=== PATIENT | male | born 1950 | race African-American/Black ===

== ENCOUNTER 2021-11-04 16:38 | Emergency (ER) | payer MEDICAID, MEDICARE ==
[~2021-11-04] VITALS: Ht 182.9 cm; Wt 90.7 kg
[2021-11-04 18:11] VITALS: BP 181/106
== END 2021-11-04 18:41 | disposition left against medical advice (07) ==
LOC: ER 16:38 → CANBEDREQ 19:32
DX: R53.1 Weakness (principal); E11.9 Type 2 diabetes mellitus without complications
CPT/HCPCS: 82962; 93005; 99283

== ENCOUNTER 2024-04-13 02:23 | Inpatient (IN) | payer MEDICARE, MEDICAID ==
[~2024-04-13] VITALS: Ht 167.6 cm; Wt 91.6 kg
[~2024-04-13 02:23] MED LIST: AMLO-139; ATOR20TA65 PO; EMPA25TA PO; KEPP250 PO; LATA2.5D14 EACHEYE; LISI20TA31 PO; METF-416 PO
[2024-04-13 03:17] LABS: CHLORIDE 124 mEq/L (98-107)
[2024-04-13 03:18] LABS: CALCIUM 8.6 mg/dL (8.7-10.4); CARBON DIOXIDE 23 mEq/L (21-32)
[2024-04-13 03:21] LABS: BASOPHILS % 0.3 % (0.0-2.0); EOSINOPHILS % 0.2 % (0.0-5.0); HEMATOCRIT. 35.9 % (42.0-52.0); HEMOGLOBIN. 11.5 g/dL (14.0-18.0); LYMPHOCYTES % 10.6 % (20.0-50.0); MEAN CORPUSCULAR HEMOGLOBIN 28.5 pg (28.0-32.0); MEAN CORPUSCULAR HGB CONC 32.2 g/dL (31.0-37.0); MEAN CORPUSCULAR VOLUME 88.5 fL (80.0-94.0); MEAN PLATELET VOLUME 7.8 fl (7.4-10.4); MONOCYTES % 8.3 % (2.0-8.0); NEUTROPHILS % 80.6 % (40.0-76.0); PLATELET 445 x1000/uL (130-400); RED BLOOD CELL COUNT 4.05 mill/uL (4.7-6.1); WHITE BLOOD COUNT 9.9 x1000/uL (4.5-11.0)
[2024-04-13 03:23] LABS: GLUCOSE 179 mg/dL (70-105); UREA NITROGEN BLOOD 22 mg/dL (9-23)
[2024-04-13 03:25] LABS: INR 1.2; PARTIAL THROMBOPLASTIN TIME 31.7 sec (23.4-31.0); PROTHROMBIN TIME 12.9 sec (9.6-11.0)
[2024-04-13 03:34] LABS: CREATININE 1.6 mg/dL (0.6-1.3)
[2024-04-13 03:35] LABS: SODIUM 159 mEq/L (136-145)
[2024-04-13 03:36] LABS: POTASSIUM 2.3 mEq/L (3.5-5.1); TROPONIN I HIGH SENSITIVITY 80 ng/L (3.0-53)
[2024-04-13] MEDS: SODIUM CHLORIDE 0.45% 250 ML IV NR (04:22)
[2024-04-13] MEDS: KCL 20MEQ/100ML PREMIX 100 ML IV NR ×2 (04:22→06:50)
[2024-04-13] MEDS: ACETAMINOPHEN 1000MG/100ML 100 ML IV NR (04:35)
[2024-04-13] MEDS ORDERED: DOCUSATE SODIUM 100MG CAPSULE PO PRN (04:45)
[2024-04-13] MEDS ORDERED: GUAIFENESIN 200MG/10ML SUGAR FREE UDC PO PRN (04:45)
[2024-04-13] MEDS ORDERED: ACETAMINOPHEN 650MG SUPP PR PRN (04:45)
[2024-04-13] MEDS ORDERED: MAGNESIUM/ALUMINUM HYDROXIDE/SIMETHICONE 30ML UDC PO PRN (04:45)
[2024-04-13] MEDS ORDERED: ONDANSETRON HCL 4MG/2ML INJ IV PRN (04:45)
[2024-04-13] MEDS ORDERED: IPRATROPIUM/ALBUTEROL 0.5-3(2.5)MG/3ML NEB HHN PRN (04:45)
[2024-04-13 06:35] LABS: CREATINE KINASE 1644 IU/L (46-171)
[2024-04-13] MEDS: POTASSIUM CHLORIDE 20MEQ/PACKET NG NR (06:50)
[2024-04-13] MEDS: SODIUM CHLORIDE 0.45% 1,000 ML IV ONE (06:50)
[2024-04-13] MEDS ORDERED: DEXTROSE 50% WATER 50ML SYRINGE IV PRN (07:45)
[2024-04-13 08:41] LABS: POTASSIUM 3.1 mEq/L (3.5-5.1)
[2024-04-13] MEDS: MEROPENEM 1GM/50ML DUPLEX 50 ML IV SCH (08:54)
[2024-04-13] MEDS ORDERED: LEVETIRACETAM 500MG in NACL 100ML PREMIX IV SCH (09:00)
[2024-04-13] MEDS: BLOOD SUGAR DIAGNOSTIC STRIP TEST SCH (09:07)
[2024-04-13] MEDS: INSULIN LISPRO 100 UNITS/ML SUBCUT SCH (09:17)
[2024-04-13] MEDS: DEXTROSE 5% WATER 1,000 ML IV SCH (10:20)
[2024-04-13] MEDS: VANCOMYCIN 1.5GM/250ML 250 ML IV NR (10:20)
[2024-04-13] MEDS: KCL 20MEQ/100ML PREMIX 100 ML IV SCH ×2 (10:20→18:00)
[2024-04-13] MEDS: LEVETIRACETAM 500MG PREMIX 100ML IV SCH (10:20)
[2024-04-13] MEDS: ENOXAPARIN 40MG/0.4ML SYR SUBCUT SCH (10:36)
[2024-04-13] MEDS: FAMOTIDINE 20MG/2ML VIAL IV SCH (10:36)
[2024-04-13 13:52] LABS: CREATINE KINASE 1477 IU/L (46-171)
[2024-04-13 14:25] LABS: TROPONIN I HIGH SENSITIVITY 87 ng/L (3.0-53)
[2024-04-13 16:01] LABS: CALCIUM 8.6 mg/dL (8.7-10.4)
[2024-04-13 16:12] LABS: CREATININE 2.4 mg/dL (0.6-1.3)
[2024-04-13 21:29] LABS: TROPONIN I HIGH SENSITIVITY 71 ng/L (3.0-53)
[2024-04-14 00:48] LABS: CALCIUM 8.7 mg/dL (8.7-10.4)
[2024-04-14 00:52] LABS: CREATININE 2.3 mg/dL (0.6-1.3)
[2024-04-14 02:22] LABS: POTASSIUM 7.2 mEq/L (3.5-5.1)
[2024-04-14] MEDS: FUROSEMIDE 40MG/4ML VIAL IV NR (03:02)
[2024-04-14] MEDS: CALCIUM CHLORIDE 1GM/10ML SYR IV NR (03:50)
[2024-04-14] MEDS: SODIUM BICARBONATE 8.4% 50MEQ/50ML SYR IV NR (03:50)
[2024-04-14] MEDS: DEXTROSE 50% WATER 50ML SYRINGE IV NR (03:50)
[2024-04-14] MEDS: INSULIN REGULAR (HUMULIN R) 1000UNITS/10ML VIAL IV NR (03:50)
[2024-04-14] MEDS: ALBUTEROL (0.083%) 2.5MG/3ML NEB HHN NR (03:55)
[2024-04-14 03:58] VITALS: PULSE 100; RESP 18; O2SAT 98
[2024-04-14] MEDS: SODIUM ZIRCONIUM CYCLOSILICATE 10GM/PACKET NG NR (04:10)
[2024-04-14 06:53] LABS: BASOPHILS % 0.1 % (0.0-2.0); EOSINOPHILS % 1.3 % (0.0-5.0); HEMATOCRIT. 36.8 % (42.0-52.0); HEMOGLOBIN. 11.6 g/dL (14.0-18.0); LYMPHOCYTES % 13.1 % (20.0-50.0); MEAN CORPUSCULAR HEMOGLOBIN 28.2 pg (28.0-32.0); MEAN CORPUSCULAR HGB CONC 31.4 g/dL (31.0-37.0); MEAN PLATELET VOLUME 8.1 fl (7.4-10.4); MONOCYTES % 11.2 % (2.0-8.0); NEUTROPHILS % 74.3 % (40.0-76.0); PLATELET 403 x1000/uL (130-400); RED BLOOD CELL COUNT 4.09 mill/uL (4.7-6.1); RED CELL DISTRIBUTION WIDTH 15.4 % (11.6-14.6)
[2024-04-14 06:54] LABS: CHLORIDE 121 mEq/L (98-107); SODIUM 152 mEq/L (136-145)
[2024-04-14 06:55] LABS: CALCIUM 8.9 mg/dL (8.7-10.4); CARBON DIOXIDE 19 mEq/L (21-32)
[2024-04-14 07:00] LABS: CREATININE 2.1 mg/dL (0.6-1.3); GLUCOSE 266 mg/dL (70-105); UREA NITROGEN BLOOD 26 mg/dL (9-23)
[2024-04-14 07:04] LABS: T4 FREE 1.17 ng/dL (0.89-1.76); THYROID STIMULATING HORMONE 1.75 uIU/mL (0.55-4.78)
[2024-04-14] MEDS: VANCOMYCIN 1GM/200ML PMX (BAXTER) IV SCH (08:21)
[2024-04-14 08:30] LABS: POTASSIUM 2.6 mEq/L (3.5-5.1)
[2024-04-14] MEDS: POTASSIUM CHLORIDE 20MEQ TABLET SR PO ONE (12:39)
[2024-04-14] MEDS: KCL 20MEQ/100ML PREMIX 100 ML IV SCH (14:38)
[2024-04-14 16:44] VITALS: BP 118/73; PULSE 93; RESP 16; TEMP 36.8
[2024-04-14 18:00] VITALS: BP 115/80; PULSE 86; RESP 16; TEMP 36.8
[2024-04-14 20:00] VITALS: BP 130/69; PULSE 101; RESP 16; TEMP 37.8; O2SAT 100
[2024-04-14 22:00] VITALS: BP 133/76; PULSE 106; RESP 17; O2SAT 100
[2024-04-14] MEDS ORDERED: POTASSIUM CHLORIDE 20MEQ/PACKET PO SCH (22:00)
[2024-04-14 22:07] LABS: CLARITY URINE CLEAR (CLEAR); COLOR URINE YELLOW (YELLOW); PH URINE 5.5 (4.5-8.0)
[2024-04-14 22:08] LABS: GLUCOSE URINE 1+ (NEGATIVE); KETONES URINE NEGATIVE (NEGATIVE); LEUKOCYTE ESTERASE URINE NEGATIVE (NEGATIVE); NITRITE URINE NEGATIVE (NEGATIVE); OCCULT BLOOD URINE 3+ (NEGATIVE); PROTEIN URINE 1+ (NEGATIVE); UROBILINOGEN URINE 0.2 E.U./dL (0.2-1.0)
[2024-04-14 22:10] LABS: BACTERIA URINE 1+; SQUAMOUS EPITHELIAL CELL URINE NONE SEEN /lpf (RARE/1+); WBC URINE 0-2 /hpf (0-2)
[2024-04-14] MEDS: ACETAMINOPHEN 650MG SUPP PR PRN (22:16)
[2024-04-14 22:38] LABS: POTASSIUM 3.6 mEq/L (3.5-5.1)
[2024-04-14 22:39] LABS: CHLORIDE 121 mEq/L (98-107); POTASSIUM 3.1 mEq/L (3.5-5.1)
[2024-04-14 22:40] LABS: CALCIUM 9.1 mg/dL (8.7-10.4); CARBON DIOXIDE 22 mEq/L (21-32)
[2024-04-14 22:45] LABS: CREATININE 1.8 mg/dL (0.6-1.3); GLUCOSE 103 mg/dL (70-105); UREA NITROGEN BLOOD 24 mg/dL (9-23)
[2024-04-14 22:47] LABS: PHOSPHORUS 2.8 mg/dL (2.5-4.9)
[2024-04-14 22:50] LABS: PREALBUMIN < 5.0 mg/dl (10.0-40.0); SODIUM 156 mEq/L (136-145)
[2024-04-15] VITALS (12 sets, daily range): BP systolic 105–145; BP diastolic 62–96; PULSE 81–94; RESP 14–20; TEMP 36.4–37.1; O2SAT 100
[2024-04-15] MEDS: POTASSIUM CHLORIDE 20MEQ/PACKET PO SCH (00:23)
[2024-04-15] MEDS: MEROPENEM 1GM/50ML DUPLEX 50 ML IV SCH (01:31)
[2024-04-15 02:13] LABS: POTASSIUM 3.2 mEq/L (3.5-5.1)
[2024-04-15] MEDS: POTASSIUM ACETATE IV ONE (02:44)
[2024-04-15] MEDS: WATER IV ONE (02:44)
[2024-04-15] MEDS: DEXT 5% IV ONE (02:44)
[2024-04-15 06:24] LABS: CHLORIDE 122 mEq/L (98-107); SODIUM 155 mEq/L (136-145)
[2024-04-15 06:25] LABS: CALCIUM 8.3 mg/dL (8.7-10.4); CARBON DIOXIDE 25 mEq/L (21-32)
[2024-04-15 06:30] LABS: BASOPHILS % 0.1 % (0.0-2.0); CREATININE 1.6 mg/dL (0.6-1.3); EOSINOPHILS % 1.6 % (0.0-5.0); GLUCOSE 176 mg/dL (70-105); HEMATOCRIT. 35.7 % (42.0-52.0); HEMOGLOBIN. 11.3 g/dL (14.0-18.0); LYMPHOCYTES % 9.8 % (20.0-50.0); MEAN CORPUSCULAR HEMOGLOBIN 28.5 pg (28.0-32.0); MEAN CORPUSCULAR HGB CONC 31.7 g/dL (31.0-37.0); MEAN CORPUSCULAR VOLUME 89.8 fL (80.0-94.0); MEAN PLATELET VOLUME 8.4 fl (7.4-10.4); MONOCYTES % 8.1 % (2.0-8.0); NEUTROPHILS % 80.4 % (40.0-76.0); PLATELET 316 x1000/uL (130-400); RED BLOOD CELL COUNT 3.98 mill/uL (4.7-6.1); RED CELL DISTRIBUTION WIDTH 15.7 % (11.6-14.6); UREA NITROGEN BLOOD 23 mg/dL (9-23); WHITE BLOOD COUNT 9.4 x1000/uL (4.5-11.0)
[2024-04-15 06:32] LABS: ALANINE AMINOTRANSFERASE 53 IU/L (10-49); ALBUMIN 3.1 g/dL (3.2-4.8); ASPARTATE AMINOTRANSFERASE 77 IU/L (<34); BILIRUBIN DIRECT 0.1 mg/dL (<=3.0)
[2024-04-15 06:33] LABS: BILIRUBIN TOTAL 0.4 mg/dL (0.1-1.0); PROTEIN TOTAL 5.8 g/dL (6.0-8.3)
[2024-04-15 06:44] LABS: CREATINE KINASE 2625 IU/L (46-171)
[2024-04-15 08:27] LABS: POTASSIUM 2.8 mEq/L (3.5-5.1); PREALBUMIN < 5.0 mg/dl (10.0-40.0)
[2024-04-15] MEDS: POTASSIUM PHOSPHATE 30 MMOL in DEXT 5% WATER 490 ML IV NR (13:03)
[2024-04-15] MEDS: VANCOMYCIN 1GM/200ML PMX (BAXTER) IV SCH (13:03)
[2024-04-15] MEDS: MAGNESIUM 2 G PREMIX 50 ML IV NR (18:49)
[2024-04-16] VITALS (12 sets, daily range): BP systolic 130–154; BP diastolic 63–87; PULSE 73–94; RESP 15–17; TEMP 36.3–37.5; O2SAT 99–100
[2024-04-16] MEDS: FAMOTIDINE 20MG/2ML VIAL IV SCH (09:28)
[2024-04-16 10:21] LABS: CHLORIDE 118 mEq/L (98-107); POTASSIUM 3.5 mEq/L (3.5-5.1); SODIUM 149 mEq/L (136-145)
[2024-04-16 10:22] LABS: CALCIUM 8.2 mg/dL (8.7-10.4); CARBON DIOXIDE 22 mEq/L (21-32)
[2024-04-16 10:27] LABS: CREATININE 1.1 mg/dL (0.6-1.3); GLUCOSE 173 mg/dL (70-105); UREA NITROGEN BLOOD 15 mg/dL (9-23)
[2024-04-16] MEDS: ACETAMINOPHEN 650MG/20.3ML UDC NG PRN (11:14)
[2024-04-16] MEDS: VANCOMYCIN 1G PREMIX 200 ML IV SCH (17:56)
[2024-04-16] MEDS: MEROPENEM 1GM/50ML DUPLEX 50 ML IV SCH (17:57)
[2024-04-17] VITALS (13 sets, daily range): BP systolic 117–162; BP diastolic 56–100; PULSE 82–103; RESP 15–21; TEMP 36.2–37.6; O2SAT 98–100
[2024-04-17 07:26] LABS: CHLORIDE 118 mEq/L (98-107); POTASSIUM 3.4 mEq/L (3.5-5.1); SODIUM 151 mEq/L (136-145)
[2024-04-17 07:28] LABS: CALCIUM 8.4 mg/dL (8.7-10.4); CARBON DIOXIDE 23 mEq/L (21-32)
[2024-04-17 07:32] LABS: GLUCOSE 159 mg/dL (70-105)
[2024-04-17 07:33] LABS: UREA NITROGEN BLOOD 15 mg/dL (9-23)
[2024-04-17 07:35] LABS: BASOPHILS % 0.3 % (0.0-2.0); EOSINOPHILS % 1.4 % (0.0-5.0); HEMATOCRIT. 30.9 % (42.0-52.0); HEMOGLOBIN. 9.9 g/dL (14.0-18.0); LYMPHOCYTES % 15.4 % (20.0-50.0); MEAN CORPUSCULAR HGB CONC 32.1 g/dL (31.0-37.0); MEAN CORPUSCULAR VOLUME 87.5 fL (80.0-94.0); MONOCYTES % 9.6 % (2.0-8.0); NEUTROPHILS % 73.3 % (40.0-76.0); PLATELET 367 x1000/uL (130-400); RED BLOOD CELL COUNT 3.54 mill/uL (4.7-6.1); RED CELL DISTRIBUTION WIDTH 14.8 % (11.6-14.6); WHITE BLOOD COUNT 6.7 x1000/uL (4.5-11.0)
[2024-04-17] MEDS ORDERED: POTASSIUM CHLORIDE 20 MEQ in DEXT 5% WATER 90 ML IV NR (12:00)
[2024-04-17] MEDS: VANCOMYCIN 1.25GM PMX (XELLIA) 250 ML IV SCH (14:22)
[2024-04-17] MEDS: POTASSIUM CHLORIDE 20 MEQ in DEXT 5% WATER 90 ML IV NR (20:48)
[2024-04-18] VITALS (11 sets, daily range): BP systolic 119–176; BP diastolic 69–101; PULSE 93–109; RESP 15–20; TEMP 36.2–37.2; O2SAT 94–100
[2024-04-18 04:33] LABS: BASOPHILS % 0.4 % (0.0-2.0); EOSINOPHILS % 1.6 % (0.0-5.0); HEMATOCRIT. 33.1 % (42.0-52.0); HEMOGLOBIN. 10.5 g/dL (14.0-18.0); LYMPHOCYTES % 14.5 % (20.0-50.0); MEAN CORPUSCULAR HGB CONC 31.8 g/dL (31.0-37.0); MEAN CORPUSCULAR VOLUME 88.2 fL (80.0-94.0); NEUTROPHILS % 74.5 % (40.0-76.0); PLATELET 390 x1000/uL (130-400); RED BLOOD CELL COUNT 3.75 mill/uL (4.7-6.1); RED CELL DISTRIBUTION WIDTH 14.9 % (11.6-14.6); WHITE BLOOD COUNT 7.8 x1000/uL (4.5-11.0)
[2024-04-18 04:39] LABS: CHLORIDE 119 mEq/L (98-107); SODIUM 151 mEq/L (136-145)
[2024-04-18 04:40] LABS: CARBON DIOXIDE 23 mEq/L (21-32)
[2024-04-18 04:41] LABS: CALCIUM 8.8 mg/dL (8.7-10.4)
[2024-04-18 04:45] LABS: GLUCOSE 142 mg/dL (70-105); INR 1.1; PROTHROMBIN TIME 11.7 sec (9.6-11.0); UREA NITROGEN BLOOD 16 mg/dL (9-23)
[2024-04-18] MEDS: CLONIDINE 0.1MG TABLET PO PRN (06:33)
[2024-04-18] MEDS: METFORMIN HCL 500MG TABLET PO SCH (09:00)
[2024-04-18] MEDS: EMPAGLIFLOZIN 25MG TABLET PO SCH (09:12)
[2024-04-18] MEDS: LISINOPRIL 20MG TABLET PO SCH (09:38)
[2024-04-18] MEDS: AMLODIPINE 5MG TABLET PO SCH (09:41)
[2024-04-18] MEDS: ATORVASTATIN CALCIUM 20MG TABLET PO SCH (21:00)
[2024-04-19] VITALS (11 sets, daily range): BP systolic 130–149; BP diastolic 74–88; PULSE 94–103; RESP 11–17; TEMP 36.1–37.2; O2SAT 100
[2024-04-19 12:23] LABS: BASOPHILS % 0.3 % (0.0-2.0); EOSINOPHILS % 1.4 % (0.0-5.0); HEMATOCRIT. 33.1 % (42.0-52.0); HEMOGLOBIN. 10.2 g/dL (14.0-18.0); LYMPHOCYTES % 14.9 % (20.0-50.0); MEAN CORPUSCULAR HEMOGLOBIN 27.9 pg (28.0-32.0); MEAN CORPUSCULAR HGB CONC 30.8 g/dL (31.0-37.0); MEAN CORPUSCULAR VOLUME 90.4 fL (80.0-94.0); MONOCYTES % 11.4 % (2.0-8.0); RED BLOOD CELL COUNT 3.66 mill/uL (4.7-6.1); RED CELL DISTRIBUTION WIDTH 15.3 % (11.6-14.6); WHITE BLOOD COUNT 10.2 x1000/uL (4.5-11.0)
[2024-04-19 12:31] LABS: CARBON DIOXIDE 21 mEq/L (21-32); CHLORIDE 119 mEq/L (98-107); POTASSIUM 3.5 mEq/L (3.5-5.1); SODIUM 153 mEq/L (136-145)
[2024-04-19 12:32] LABS: CALCIUM 8.5 mg/dL (8.7-10.4)
[2024-04-19 12:36] LABS: GLUCOSE 174 mg/dL (70-105)
[2024-04-19 12:37] LABS: UREA NITROGEN BLOOD 12 mg/dL (9-23)
[2024-04-19 13:37] LABS: DIFFERENTIAL COMMENT 1
[2024-04-19 22:13] LABS: PLATELET 392 x1000/uL (130-400)
[2024-04-20] VITALS (12 sets, daily range): BP systolic 135–155; BP diastolic 73–113; PULSE 92–103; RESP 5–16; TEMP 35.8–37; O2SAT 98–100
[2024-04-20] MEDS: DEXT 5%/0.45% NACL 1000ML 1,000 ML IV SCH (12:00)
[2024-04-20 12:38] LABS: CHLORIDE 121 mEq/L (98-107); POTASSIUM 2.9 mEq/L (3.5-5.1)
[2024-04-20 12:39] LABS: CALCIUM 8.7 mg/dL (8.7-10.4); CARBON DIOXIDE 24 mEq/L (21-32)
[2024-04-20 12:44] LABS: GLUCOSE 135 mg/dL (70-105); UREA NITROGEN BLOOD 13 mg/dL (9-23)
[2024-04-20] MEDS ORDERED: KCL 20MEQ/100ML PREMIX 100 ML IV SCH (13:00)
[2024-04-20] MEDS: POTASSIUM CHLORIDE 40MEQ in DEXT 5% WATER 250ML IV NR (13:00)
[2024-04-20 13:09] LABS: SODIUM 156 mEq/L (136-145)
[2024-04-20] MEDS ORDERED: POTASSIUM CHLORIDE 30 MEQ in DEXT 5%/0.9% NACL 985 ML IV SCH (14:30)
[2024-04-20] MEDS: POTASSIUM CHLORIDE 20MEQ/PACKET GT NR (18:35)
[2024-04-20] MEDS: POTASSIUM CHLORIDE 20MEQ/PACKET PO NR (21:40)
[2024-04-21 00:47] VITALS: BP 143/82; PULSE 99; RESP 20; TEMP 36.7; O2SAT 100
[2024-04-21 04:00] VITALS: BP 145/79; PULSE 91; RESP 18; TEMP 35.9; O2SAT 100
[2024-04-21 05:55] LABS: CHLORIDE 123 mEq/L (98-107); POTASSIUM 3.2 mEq/L (3.5-5.1)
[2024-04-21 05:56] LABS: CALCIUM 8.6 mg/dL (8.7-10.4); CARBON DIOXIDE 26 mEq/L (21-32)
[2024-04-21 06:01] LABS: GLUCOSE 149 mg/dL (70-105); UREA NITROGEN BLOOD 13 mg/dL (9-23)
[2024-04-21] MEDS: POTASSIUM CHLORIDE 20MEQ/PACKET PO NR (07:50)
[2024-04-21 08:00] VITALS: BP 169/83; PULSE 96; RESP 22; TEMP 36.8; O2SAT 100
[2024-04-21 08:03] LABS: SODIUM 158 mEq/L (136-145)
[2024-04-21 12:00] VITALS: BP 141/77; PULSE 100; RESP 20; TEMP 36.9; O2SAT 98
[2024-04-21 16:00] VITALS: BP 148/84; PULSE 105; RESP 17; TEMP 36.7; O2SAT 99
[2024-04-21 20:00] VITALS: BP 134/81; PULSE 94; RESP 20; TEMP 36.5; O2SAT 100
[2024-04-22] VITALS (7 sets, daily range): BP systolic 122–154; BP diastolic 76–86; PULSE 89–105; RESP 18–21; TEMP 35.9–38.3; O2SAT 99–100
[2024-04-22 06:42] LABS: CHLORIDE 120 mEq/L (98-107)
[2024-04-22 06:43] LABS: CARBON DIOXIDE 24 mEq/L (21-32)
[2024-04-22 06:44] LABS: CALCIUM 8.9 mg/dL (8.7-10.4)
[2024-04-22 06:48] LABS: GLUCOSE 141 mg/dL (70-105)
[2024-04-22 06:49] LABS: UREA NITROGEN BLOOD 11 mg/dL (9-23)
[2024-04-22] MEDS ORDERED: BUPIVACAINE HCL/PF 0.5% (5MG/ML) 10ML ONE (07:14)
[2024-04-22 08:08] LABS: SODIUM 156 mEq/L (136-145)
[2024-04-22 08:09] LABS: POTASSIUM 2.7 mEq/L (3.5-5.1)
[2024-04-22] MEDS: SODIUM CHLORIDE 0.45% 1,000 ML IV SCH (08:50)
[2024-04-22] MEDS: POTASSIUM CHLORIDE 40 MEQ in DEXT 5% WATER 230 ML IV NR (09:01)
[2024-04-22 15:55] LABS: CHLORIDE 121 mEq/L (98-107)
[2024-04-22 15:56] LABS: CARBON DIOXIDE 23 mEq/L (21-32)
[2024-04-22 15:57] LABS: CALCIUM 8.6 mg/dL (8.7-10.4)
[2024-04-22 16:01] LABS: GLUCOSE 156 mg/dL (70-105)
[2024-04-22 16:02] LABS: UREA NITROGEN BLOOD 12 mg/dL (9-23)
[2024-04-22 16:10] LABS: SODIUM 156 mEq/L (136-145)
[2024-04-22] MEDS: POTASSIUM CHLORIDE 20MEQ TABLET SR PO NR (17:37)
[2024-04-22] MEDS: DEXTROSE 5% WATER 1,000 ML IV SCH (18:29)
[2024-04-22] MEDS: WATER IV NR (18:54)
[2024-04-22] MEDS: DEXT 5% IV NR (18:54)
[2024-04-22] MEDS: POTASSIUM CHLORIDE IV NR (18:54)
[2024-04-23] VITALS: BP 156/83; PULSE 98; RESP 18; TEMP 36.2; O2SAT 100
[2024-04-23 04:00] VITALS: BP 150/85; PULSE 93; RESP 19; TEMP 36; O2SAT 100
[2024-04-23 06:48] LABS: CALCIUM 8.5 mg/dL (8.7-10.4); CARBON DIOXIDE 23 mEq/L (21-32); CHLORIDE 119 mEq/L (98-107); POTASSIUM 3.8 mEq/L (3.5-5.1); SODIUM 153 mEq/L (136-145)
[2024-04-23 06:53] LABS: GLUCOSE 206 mg/dL (70-105)
[2024-04-23 06:54] LABS: UREA NITROGEN BLOOD 10 mg/dL (9-23)
[2024-04-23 07:02] LABS: BASOPHILS % 0.6 % (0.0-2.0); EOSINOPHILS % 1.4 % (0.0-5.0); HEMATOCRIT. 35.5 % (42.0-52.0); HEMOGLOBIN. 11.1 g/dL (14.0-18.0); LYMPHOCYTES % 21.9 % (20.0-50.0); MEAN CORPUSCULAR HEMOGLOBIN 28.2 pg (28.0-32.0); MEAN CORPUSCULAR HGB CONC 31.3 g/dL (31.0-37.0); MEAN CORPUSCULAR VOLUME 90.3 fL (80.0-94.0); MONOCYTES % 11.2 % (2.0-8.0); NEUTROPHILS % 64.9 % (40.0-76.0); PLATELET 385 x1000/uL (130-400); RED BLOOD CELL COUNT 3.93 mill/uL (4.7-6.1); RED CELL DISTRIBUTION WIDTH 15.5 % (11.6-14.6); WHITE BLOOD COUNT 10.6 x1000/uL (4.5-11.0)
[2024-04-23 08:00] VITALS: BP 182/91; PULSE 97; RESP 20; TEMP 36.4; O2SAT 100
[2024-04-23] MEDS ORDERED: KCL 20MEQ/100ML PREMIX 100 ML IV ONE (09:15)
[2024-04-23] MEDS ORDERED: BUPIVACAINE HCL/PF 0.5% (5MG/ML) 10ML ONE (11:36)
[2024-04-23] MEDS ORDERED: CLINDAMYCIN 600MG PREMIX 50 ML IV ONE (12:19)
[2024-04-23] MEDS ORDERED: LABETALOL 5MG/ML 4ML INJ IV PRN (13:00)
[2024-04-23] MEDS ORDERED: HYDROMORPHONE HCL/PF 1MG/ML INJ IV PRN (13:00)
[2024-04-23] MEDS ORDERED: ONDANSETRON HCL 4MG/2ML INJ IV PRN (13:00)
[2024-04-23] MEDS ORDERED: GLYCOPYRROLATE 0.2 MG/ML 2ML VIAL IV PRN (13:00)
[2024-04-23] MEDS: HYDRALAZINE 20MG/ML VIAL IV PRN (14:43)
[2024-04-23 16:00] VITALS: BP 131/68; PULSE 105; RESP 20; TEMP 36.7; O2SAT 97
[2024-04-23] MEDS: POTASSIUM CHLORIDE 20 MEQ in SODIUM CHLORIDE 0.9% 100 ML IV NR (18:42)
[2024-04-23 20:00] VITALS: BP 148/78; PULSE 110; RESP 19; TEMP 37.2; O2SAT 98
[2024-04-24] VITALS: BP 135/91; PULSE 103; RESP 18; TEMP 37; O2SAT 98
[2024-04-24 04:00] VITALS: BP 126/60; PULSE 96; RESP 18; TEMP 36.7; O2SAT 98
[2024-04-24 07:40] LABS: CHLORIDE 118 mEq/L (98-107); SODIUM 153 mEq/L (136-145)
[2024-04-24 07:41] LABS: CALCIUM 8.5 mg/dL (8.7-10.4); CARBON DIOXIDE 24 mEq/L (21-32)
[2024-04-24 07:44] LABS: HEMATOCRIT. 31.9 % (42.0-52.0); HEMOGLOBIN. 9.8 g/dL (14.0-18.0); MEAN CORPUSCULAR HEMOGLOBIN 27.1 pg (28.0-32.0); MEAN CORPUSCULAR HGB CONC 30.8 g/dL (31.0-37.0); MEAN CORPUSCULAR VOLUME 87.9 fL (80.0-94.0); MEAN PLATELET VOLUME 7.6 fl (7.4-10.4); PLATELET 445 x1000/uL (130-400); RED BLOOD CELL COUNT 3.63 mill/uL (4.7-6.1); RED CELL DISTRIBUTION WIDTH 15.2 % (11.6-14.6); WHITE BLOOD COUNT 15.7 x1000/uL (4.5-11.0)
[2024-04-24 07:46] LABS: GLUCOSE 200 mg/dL (70-105); UREA NITROGEN BLOOD 10 mg/dL (9-23)
[2024-04-24 07:51] LABS: DIFFERENTIAL COMMENT 1
[2024-04-24 08:00] VITALS: BP 128/68; PULSE 94; RESP 16; TEMP 36.6; O2SAT 100
[2024-04-24] MEDS ORDERED: DEXTROSE 50% WATER 50ML SYRINGE IV PRN (08:15)
[2024-04-24 08:24] LABS: POTASSIUM 2.7 mEq/L (3.5-5.1)
[2024-04-24] MEDS ORDERED: KCL 20MEQ/100ML PREMIX 100 ML IV SCH (10:45)
[2024-04-24 11:21] LABS: ANISOCYTOSIS 1+; PLATELET ESTIMATE NORMAL
[2024-04-24 12:00] VITALS: BP 130/71; PULSE 97; RESP 16; TEMP 36.6; O2SAT 100
[2024-04-24] MEDS: INSULIN LISPRO 100 UNITS/ML SUBCUT SCH (12:25)
[2024-04-24] MEDS: POTASSIUM CHLORIDE 20MEQ/PACKET GT NR ×2 (12:26→20:30)
[2024-04-24] MEDS ORDERED: POTASSIUM CHLORIDE 40MEQ in DEXT 5% WATER 250ML IV NR (13:00)
[2024-04-24] MEDS ORDERED: POTASSIUM CHLORIDE 20MEQ TABLET SR PO SCH (13:15)
[2024-04-24 16:00] VITALS: BP 112/62; PULSE 100; RESP 17; TEMP 36.6; O2SAT 100
[2024-04-24] MEDS ORDERED: POTASSIUM CHLORIDE 20MEQ/PACKET GT NR (16:00)
[2024-04-24 20:00] VITALS: BP 124/63; PULSE 92; RESP 16; TEMP 36.3; O2SAT 99
[2024-04-25] VITALS: BP 126/71; PULSE 90; RESP 16; TEMP 36.3; O2SAT 100
[2024-04-25 06:51] LABS: BASOPHILS % 0.2 % (0.0-2.0); EOSINOPHILS % 2.5 % (0.0-5.0); HEMATOCRIT. 29.3 % (42.0-52.0); HEMOGLOBIN. 9.4 g/dL (14.0-18.0); LYMPHOCYTES % 9.7 % (20.0-50.0); MEAN CORPUSCULAR HEMOGLOBIN 27.5 pg (28.0-32.0); MEAN CORPUSCULAR HGB CONC 32.3 g/dL (31.0-37.0); MEAN CORPUSCULAR VOLUME 85.2 fL (80.0-94.0); MEAN PLATELET VOLUME 8.1 fl (7.4-10.4); MONOCYTES % 4.4 % (2.0-8.0); NEUTROPHILS % 83.2 % (40.0-76.0); PLATELET 406 x1000/uL (130-400); RED BLOOD CELL COUNT 3.44 mill/uL (4.7-6.1); WHITE BLOOD COUNT 10.8 x1000/uL (4.5-11.0)
[2024-04-25 07:08] LABS: CARBON DIOXIDE 25 mEq/L (21-32); CHLORIDE 117 mEq/L (98-107); SODIUM 152 mEq/L (136-145)
[2024-04-25 07:09] LABS: CALCIUM 8.4 mg/dL (8.7-10.4)
[2024-04-25 07:14] LABS: GLUCOSE 150 mg/dL (70-105); UREA NITROGEN BLOOD 11 mg/dL (9-23)
[2024-04-25 08:00] VITALS: BP 143/76; PULSE 103; RESP 17; TEMP 36.7; O2SAT 100
[2024-04-25 08:03] LABS: POTASSIUM 2.8 mEq/L (3.5-5.1)
[2024-04-25] MEDS: POTASSIUM CHLORIDE 20MEQ/PACKET GT SCH (08:12)
[2024-04-25 12:00] VITALS: BP 148/79; PULSE 99; RESP 17; TEMP 36.8; O2SAT 100
[2024-04-25] MEDS ORDERED: LISI20TA31 GT ×2 (14:06→14:40)
[2024-04-25] MEDS ORDERED: KEPPSOL GT ×2 (14:06→14:40)
[2024-04-25] MEDS ORDERED: DEXTL GT ×2 (14:06→14:12)
[2024-04-25] MEDS ORDERED: ACET650S25 NG ×2 (14:06→14:40)
[2024-04-25] MEDS ORDERED: AMLO5TAB88 PO ×2 (14:06→14:40)
[2024-04-25] MEDS ORDERED: METF-414 GT ×2 (14:06→14:40)
[2024-04-25] MEDS ORDERED: ATOR20TA GT ×2 (14:06→14:40)
[2024-04-25] MEDS ORDERED: DOCU-422 GT ×2 (14:06→14:40)
[2024-04-25] MEDS ORDERED: INSLIS SUBCUT (14:40)
[2024-04-25] MEDS ORDERED: EMPA25TA GT (14:40)
== END 2024-04-25 15:35 | disposition hospice, home (50) | DRG 871 ==
LOC: ER 02:42 → MICUSO 03:57 → EDBEDREQ 04:12 → EDBEDREQTM 04:12 → EDBEDREQSVC 04:12 → 5EST 04-14 16:39 → 8WST 04-20 23:51 → 5EST 04-21 00:18 → 8WST 04-21 00:20
PROVIDERS: ADMIT Internal Medicine; ATTEND Internal Medicine
PROC: 0DB78ZX Excision of Stomach, Pylorus, Via Natural or Artificial Opening Endoscopic, Diagnostic (ICD-10-PCS; 2024-04-18)
PROC: 0DH63UZ Insertion of Feeding Device into Stomach, Percutaneous Approach (ICD-10-PCS; 2024-04-21)
PROC: 0DH60UZ Insertion of Feeding Device into Stomach, Open Approach (ICD-10-PCS; principal; 2024-04-23)
PROC: 4A00X4Z Measurement of Central Nervous Electrical Activity, External Approach (ICD-10-PCS; 2024-04-23)
DX: A41.9 Sepsis, unspecified organism (principal); G92.8 Other toxic encephalopathy; J96.01 Acute respiratory failure with hypoxia; J69.0 Pneumonitis due to inhalation of food and vomit; J18.9 Pneumonia, unspecified organism; E87.0 Hyperosmolality and hypernatremia; N17.9 Acute kidney failure, unspecified; E87.1 Hypo-osmolality and hyponatremia; I13.0 Hypertensive heart and chronic kidney disease with heart failure and stage 1 through stage 4 chronic kidney disease, or unspecified chronic kidney disease; E87.6 Hypokalemia; E86.0 Dehydration; E87.8 Other disorders of electrolyte and fluid balance, not elsewhere classified; G40.909 Epilepsy, unspecified, not intractable, without status epilepticus; R62.7 Adult failure to thrive; N20.0 Calculus of kidney; Z20.822 Contact with and (suspected) exposure to COVID-19; L89.150 Pressure ulcer of sacral region, unstageable; E11.22 Type 2 diabetes mellitus with diabetic chronic kidney disease; N18.9 Chronic kidney disease, unspecified; E83.42 Hypomagnesemia; J44.9 Chronic obstructive pulmonary disease, unspecified; Z51.5 Encounter for palliative care; Z66 Do not resuscitate; K29.70 Gastritis, unspecified, without bleeding; D63.1 Anemia in chronic kidney disease; E78.00 Pure hypercholesterolemia, unspecified; G20.A1 Parkinson's disease without dyskinesia, without mention of fluctuations; F02.80 Dementia in other diseases classified elsewhere, unspecified severity, without behavioral disturbance, psychotic disturbance, mood disturbance, and anxiety; I50.9 Heart failure, unspecified; R13.10 Dysphagia, unspecified; Z79.84 Long term (current) use of oral hypoglycemic drugs; Z79.899 Other long term (current) drug therapy; Z87.440 Personal history of urinary (tract) infections; Z88.0 Allergy status to penicillin; Z68.32 Body mass index [BMI] 32.0-32.9, adult
CPT/HCPCS: 36415; 49450; 71045; 74018; 74176; 76705; 80048; 80076; 80202; 81003; 82088; 82550; 82962; 83036; 83735; 83880; 84100; 84132; 84133; 84134; 84145; 84244; 84300; 84439; 84443; 84484; 85025; 85379; 87106; 87426; 87804; 88305; 88312; 88313; 92610; 93005; 93971; 94640; 95816; 99285; A4606; C1893; J0360; J0665; J1650; J1815; J1940; J1953; J2185; J3370; J3475; J3480; J3490; J7042; J7050; J7060; J7070; J0131